=== PATIENT | male | born 2000 | race Caucasian/White ===

== ENCOUNTER 2019-02-28 22:30 | Emergency (ER) | payer OTHER ==
--- NOTE | 2019-02-28 23:59 | XRay Report ---
Left toes, 3 views INDICATION: Pain following injury today FINDINGS: There is dislocation of the third toe at the proximal interphalangeal joint with dorsal dis placement and overriding of the middle phalanx. There is no definite fracture seen. The remaining toe s are intact. Signer Name: Juan Falcon MD Signed: 02/28/2019 11:55 PM Workstation Name: [id number]
[2019-03-01] MEDS: PERCOCET 5/325 PO ONE (00:03)
[2019-03-01] MEDS: XYLOCAINE 1% MPF 5 mL INFILTRATI ONE ×2 (00:03→02:20)
--- NOTE | 2019-03-01 00:09 | Emergency Department Report ---
ED Extremity Problem HPI - General Chief complaint: Extremity Injury, Lower Stated complaint: TOE DISLOCATION Time Seen by Provider: 02/28/19 23:23 Source: patient Mode of arrival: Ambulatory Limitations: No Limitations - History of Present Illness Initial comments: Patient is a 18-year-old male who presents to the emergency room with complaints of a dislocation to his left third toe that occurred earlier today. The patient was evaluated at urgent care and given Toradol and he states they attempted to reduce it twice but were unsuccessful. They advised patient to be seen in the emergency department. 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 He was wearing boots at the time. He denies any previous dislocation or fracture in the foot. Has not been ambulatory since the incident. Past medical history of asthma. his only allergy is to eggs. Denies any allergies to medications. Immunizations up-to-date. Severity scale (0 -10): 10 - Related Data Previous Rx's Medication Instructions Recorded Last Taken Type Acetaminophen/Codeine [Tylenol 1 tab PO Q6H PRN #10 tab 03/01/19 Unknown Rx /Codeine # 3 tab] Ibuprofen [Motrin 800 MG tab] 800 mg PO Q8HR PRN #14 tablet 03/01/19 Unknown Rx Allergies Allergy/AdvReac Type Severity Reaction Status Date / Time egg Allergy Anaphylaxis Verified 02/28/19 22:35 ED Review of Systems ROS: Stated complaint: TOE DISLOCATION Other details as noted in HPI Comment: All other systems reviewed and negative ED Past Medical Hx - Past Medical History Previous Medical History?: Yes Hx Asthma: Yes - Surgical History Past Surgical History?: No - Social History Smoking Status: Never Smoker - Medications Home Medications: Home Medications Medication Instructions Recorded Confirmed Last Taken Type Acetaminophen/Codeine [Tylenol 1 tab PO Q6H PRN #10 tab 03/01/19 Unknown Rx /Codeine # 3 tab] Ibuprofen [Motrin 800 MG tab] 800 mg PO Q8HR PRN #14 tablet 03/01/19 Unknown Rx ED Physical Exam - General Limitations: No Limitations General appearance: alert, in no apparent distress - Head Head exam: Present: atraumatic, normocephalic - Eye Eye exam: Present: normal appearance - ENT ENT exam: Present: mucous membranes moist - Extremities Exam Extremities exam: Present: other (obvious deformity to the left third toe, 2+ dp and pt pulses, no TTP of the left foot or ankle, FROM of the left foot and ankle, small amount of edema to the left third toe, sensation intact) - Neurological Exam Neurological exam: Present: alert, oriented X3 - Psychiatric Psychiatric exam: Present: normal affect, normal mood - Skin Skin exam: Present: warm, dry, intact ED Course Vital Signs 02/28/19 22:34 Temperature 98.2 F Pulse Rate 66 Respiratory 18 Rate Blood Pressure 113/79 O2 Sat by Pulse 96 Oximetry - Nerve Block Consent Obtained: verbal consent Time Out Performed: Yes Local Anesthetic Used: Lidocaine 1% Amount of anesthesia used: 2 Side: left (third toe) Nerve Blocks: digital Procedure Successful: Yes Complications: none Patient Tolerated Procedure: well ED Medical Decision Making - Radiology Data Radiology results: report reviewed Left toes, 3 views INDICATION: Pain following injury today FINDINGS: There is dislocation of the third toe at the proximal interphalangeal joint with dorsal displacement and overriding of the middle phalanx. There is no definite fracture seen. The remaining toes are intact. Signer Name: Juan Falcon MD Signed: 02/28/2019 11:55 PM Workstation Name: [id number] Transcribed By: ZOIE Dictated By: Juan Falcon MD Electronically Authenticated By: Juan Falcon MD Signed Date/Time: 02/28/19 2355 Left toes, 3 views INDICATION: Dislocation, postreduction FINDINGS: When compared to the earlier exam the dislocation at the proximal interphalangeal joint of the third toe remains unchanged. Signer Name: Juan Falcon MD Signed: 03/01/2019 1:24 AM Workstation Name: [id number] Transcribed By: ZOIE Dictated By: Juan Falcon MD Electronically Authenticated By: Juan Falcon MD Signed Date/Time: 03/01/19 0124 Left toes, 3 views INDICATION: Toe dislocation, postreduction FINDINGS: When compared to the prior films the dislocation at the proximal interphalangeal joint of the third toe persists. No new abnormality. Signer Name: Juan Falcon MD Signed: 03/01/2019 3:31 AM Workstation Name: [id number] Transcribed By: ZOIE Dictated By: Juan Falcon MD Electronically Authenticated By: Juan Falcon MD Signed Date/Time: 03/01/19 1398 - Medical Decision Making Patient is a 18-year-old male who presents to the emergency room with complaints of a dislocation to his left third toe that occurred earlier today. The patient was evaluated at urgent care and given Toradol and he states they attempted to reduce it twice but were unsuccessful. They advised patient to be seen in the emergency department. 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 He was wearing boots at the time. He denies any previous dislocation or fracture in the foot. Has not been ambulatory since the incident. Past medical history of asthma. his only allergy is to eggs. Denies any allergies to medications. Immunizations up-to-date. on exam: obvious deformity to the left third toe, 2+ dp and pt pulses, no TTP of the left foot or ankle, FROM of the left foot and ankle, small amount of edema to the left third toe, sensation intact. XR of the left toes shows There is dislocation of the third toe at the proximal interphalangeal joint with dorsal displacement and overriding of the middle phalanx. There is no definite fracture seen. The remaining toes are intact. digital block performed and pain medication given and reduction attempted, XR shows that reduction was not successful. TIFFANY Low attempted second reduction and another XR was obtained which was also unsuccessful. discussed results with pt. pt placed in post op shoe and given crutches. pt given prescription for pain medication and anti-inflammatory. discussed to take medication as prescribed. do not drive or operate heavy machinery while taking pain medication. advised to follow up with Dr. Lehman, orthopedic as soon as possible. return to the emergency room for any new or worsening symptoms. - Differential Diagnosis dislocation, fx, strain, sprain, tendon/ligament injury Critical care attestation.: If time is entered above; I have spent that time in minutes in the direct care of this critically ill patient, excluding procedure time. ED Disposition Clinical Impression: Toe dislocation Qualifiers: Encounter type: initial encounter Laterality: left Qualified Code(s): S93.105A - Unspecified dislocation of left toe(s), initial encounter Disposition: - TO HOME OR SELFCARE Is pt being admited?: No Does the pt Need Aspirin: No Condition: Stable Additional Instructions: take medication as prescribed. do not drive or operate heavy machinery while taking pain medication. Follow up with Dr. Lehman, orthopedic as soon as possible. may use ice, rest, elevation of the leg. return to the emergency room for any new or worsening symptoms. Prescriptions: Ibuprofen [Motrin 800 MG tab] 800 mg PO Q8HR PRN #14 tablet PRN Reason: Pain, Moderate (4-6) Acetaminophen/Codeine [Tylenol /Codeine # 3 tab] 1 tab PO Q6H PRN #10 tab PRN Reason: Pain , Severe (7-10) Referrals: NOEMI LEHMAN MD [Staff Physician] - [facility] Time of Disposition: 03:50 Print Language: ARABIC
--- NOTE | 2019-03-01 01:28 | XRay Report ---
Left toes, 3 views INDICATION: Dislocation, postreduction FINDINGS: When compared to the earlier exam the dislocation at the proximal interphalangeal joint of the third toe remains unchanged. Signer Name: Juan Falcon MD Signed: 03/01/2019 1:24 AM Workstation Name: [id number]
--- NOTE | 2019-03-01 03:35 | XRay Report ---
Left toes, 3 views INDICATION: Toe dislocation, postreduction FINDINGS: When compared to the prior films the dislocation at the proximal interphalangeal joint of t he third toe persists. No new abnormality. Signer Name: Juan Falcon MD Signed: 03/01/2019 3:31 AM Workstation Name: [id number]
[2019-03-01 04:44] VITALS: BP 100/60
== END 2019-03-01 04:42 | disposition home or self-care (01) ==
LOC: ED 22:30
DX: S93.105A Unspecified dislocation of left toe(s), initial encounter (principal); J45.909 Unspecified asthma, uncomplicated; Z79.899 Other long term (current) drug therapy; Z91.012 Allergy to eggs; W51.XXXA Accidental striking against or bumped into by another person, initial encounter; Y93.89 Activity, other specified; Y92.89 Other specified places as the place of occurrence of the external cause; Y99.8 Other external cause status